=== PATIENT | male | born 1960 | race African-American/Black ===

== ENCOUNTER 2020-08-19 06:05 | Emergency (ER) | payer MEDICARE, MEDICAID, SELFPAY ==
--- NOTE | ~2020-08-19 | XR_ITS ---
EXAMINATION: XR chest 1V portable INDICATION: Cough TECHNIQUE: Portable AP chest at 0802 hours COMPARISON: 09/04/2010 FINDINGS: The lungs are free of acute opacities. There is no pleural effusion or pneumothorax. The ca rdiomediastinal silhouette is normal. There is chronic mild elevation of the right hemidiaphragm. Cliff gical clips are noted near the gastroesophageal junction. IMPRESSION: 1. No acute cardiopulmonary abnormality. Reviewed, dictated and finalized at location [facility] [employer]
[2020-08-19 06:12] VITALS: BP 132/89; PULSE 113; RESP 20; TEMP 35.6; O2SAT 98
--- NOTE | 2020-08-19 06:33 | ECG_ITS ---
Measurements Intervals [place] Rate: 93 P: 47 OK: 180 QRS: -29 QRSD: 109 T: 64 QT: 366 QTc: 455 Interpretive Statements SINUS RHYTHM CANNOT RULE OUT SEPTAL INFARCT, AGE INDETERMINATE BORDERLINE T WAVE ABNORMALITY- HIGH LATERAL LEADS ABNORMAL ECG Electronically Signed On 08-19-2020 8:37:24 [employer] by Bharat Shipman D.O.
--- NOTE | 2020-08-19 06:43 | ED.SOB ---
HPI - SOB/Dyspnea General Chief Complaint: Shortness of Breath/Dyspnea Stated Complaint: cough Time Seen by Provider: 08/19/20 06:16 Source: patient Mode of arrival: ambulatory Limitations: no limitations History of Present Illness HPI Narrative: This patient is a 60 year old male with history of hypertension and bronchitis who presents for evaluation of a cough. He reports he has had a cough for 1 week after he returned from [place]. He states his cough is nonproductive, and he is coughing so much it is making his body ache. He denies associated fever, chills, nausea, vomiting, diarrhea, sob or chest pain. He had similar symptoms 3 months ago. He was evaluated by his PCP at that time and he was started on promethazine. He reports having a negative covid test at that time. Of note is he was in [place] for a . Related Data Allergies Allergy/AdvReac Type Severity Reaction Status Date / Time prochlorperazine Allergy Mild TONGUE Unverified 12/09/19 12:08 SWELLING Review of Systems Review of Systems: All systems reviewed & are unremarkable except as noted in HPI and below Constitutional: Constitutional: Denies chills and Denies fever(s) ENT: Denies sore throat Cardiovascular: Cardiovascular: Denies chest pain Respiratory: Respiratory: Reports chest congestion, Reports cough and Denies dyspnea Gastrointestinal: Gastrointestinal: Denies abdominal pain, Denies diarrhea, Denies nausea and Denies vomiting Musculoskeletal: Musculoskeletal: Reports myalgias PMFSH Past Medical History Medical History (Updated 08/19/20 @ 08:13 by Gracy Marcus MD) Hypertension Surgical History Surgical History (Updated 08/19/20 @ 06:44 by Gracy Marcus MD) H/O shoulder surgery Family History Family History (System 12/09/19 @ 12:08 by Charity Maya) Mother Hypertension Asthma Cerebrovascular accident Family history of diabetes mellitus in first degree relative Patient's mother is Father Hypertension Patient's father is in good health Family history of Alzheimer's disease Family history of diabetes mellitus in first degree relative Sibling Patient's sister is in good health Patient's brother is in good health Social History Social History (Updated 08/19/20 @ 06:45 by Gracy Marcus MD) Smoking end date: 10/06/10 Additional smoking assessment comments: smokes 1 cig per week Alcohol intake: never Gender identity (if verbalized by the patient): Male Exam Const: General: no acute distress and alert Orientation/consciousness: patient oriented x3 HENMT: Head: normocephalic and atraumatic Ears: TM's normal bilaterally Face and sinus: face symmetric Mouth: Yes Normal oral and palatal mucosa present Throat: posterior oropharynx normal Eyes: EOM: EOMs intact bilaterally Resp: Effort & Inspection: normal respiratory effort, not labored and not tachypneic Auscultation: diminished lung sounds Cardio: Rate: regular rate Rhythm: regular rhythm Heart sounds: no murmurs GI: GI Palp: Yes Soft to palpation, No Tenderness to palpation present (GI) and No Guarding due to palpation present (GI) Auscultation: normal bowel sounds Course Reevaluation(s) Reevaluation #1: I Discussed with patient that labs are unremarkable other than hyperglycemia. He is stable for discharge home. Date: 08/19/20 Time: 08:12 Vital Signs Vital signs: Vital Signs Temperature 96.1 F L 08/19/20 06:12 Pulse Rate 113 H 08/19/20 06:12 Respiratory Rate 20 08/19/20 06:12 Blood Pressure 132/89 08/19/20 06:12 Pulse Oximetry 98 08/19/20 06:12 Temperature 96.1 F L 08/19/20 06:12 Pulse Rate 113 H 08/19/20 06:12 Respiratory Rate 20 08/19/20 06:12 Blood Pressure 132/89 08/19/20 06:12 Pulse Oximetry 98 08/19/20 06:12 MDM - SOB/Dyspnea Lab Data Attestation: I reviewed the patient's lab results. Result diagrams: 08/19/20 06
[2020-08-19] MEDS: ALBUTEROL SULFATE (*SP) AEROSOL 1 PUFF 4 PUFF INHALATION (06:50)
[2020-08-19] MEDS: ALBUTEROL SULFATE (*SP) INHALER 1 PUFF (06:51)
[2020-08-19 06:59] LABS: Basophils Absolute Auto 0.1 K/mm3 (0.0-0.1); Basophils Percent Auto 0.7 % (0.2-1.2); Eosinophils Absolute Auto 0.1 K/mm3 (0-0.3); Eosinophils Percent Auto 1.6 % (0-4.4); Hematocrit 41.9 % (42.0-52.0); Hemoglobin 13.3 g/dL (14.0-18.0); Immature Granulocyte Absolute 0.03 K/mm3 (0.00-0.031); Immature Granulocyte Percent A 0.4 % (0-0.5); Lymphocytes Absolute Auto 2.27 K/mm3 (0.9-3.2); Lymphocytes Percent Auto 30.5 % (18.3-44.2); Mean Corpuscular HGB Conc 31.7 g/dl (32-36); Mean Platelet Volume 10.2 fl (7.4-10.4); Monocytes Absolute Auto 0.5 K/mm3 (0.1-0.6); Monocytes Percent Auto 6.5 % (2.6-8.5); Neutrophils Absolute Auto 4.5 K/mm3 (1.3-6.7); Neutrophils Percent Auto 60.3 % (45.5-73.1); Platelet Count Result 337 k/mm3 (150-375); Red Blood Count 4.93 M/mm3 (4.6-6.20); Red Cell Distribution Width 13.3 % (11.5-14.5); White Blood Count 7.4 K/mm3 (4.5-10.0)
[2020-08-19 07:09] LABS: Lactic Acid Reflex 1.2 mmol/L (0.7-2.1)
[2020-08-19 07:13] LABS: Alanine Aminotransferase 23 U/L (4-50); Albumin Level 4.3 g/dL (3.5-5.1); Alkaline Phosphatase 76 U/L (38-126); Anion Gap 9 mmol/L (8-16); Aspartate Amino Transferase 27 U/L (17-59); Bilirubin,Total 0.4 mg/dL (0.2-1.3); Blood Urea Nitrogen 19 mg/dL (9-20); Calcium 9.2 mg/dL (8.4-10.2); Carbon Dioxide 28 mmol/L (22-30); Chloride 103 mmol/L (98-107); Estimated CRCL calculation 100 ml/min; Estimated Glomerular Filt Rate > 60; Glucose 303 mg/dL (75-110); Sodium 140 mmol/L (137-145)
[2020-08-19 08:45] VITALS: BP 154/90; PULSE 75; RESP 16; O2SAT 100
[2020-08-19 21:18] LABS: SARS-CoV-2 RNA PCR Negative
== END 2020-08-19 08:45 | disposition home or self-care (01) ==
PROVIDERS: Emergency Provider General Practice
DX: J06.9 Acute upper respiratory infection, unspecified (principal); Z20.828 Contact with and (suspected) exposure to other viral communicable diseases; I10 Essential (primary) hypertension; F17.210 Nicotine dependence, cigarettes, uncomplicated; R94.31 Abnormal electrocardiogram [ECG] [EKG]
CPT/HCPCS: 36415; 71045; 80048; 80076; 83605; 85025; 86140; 87635; 93005; 99283; A9270; C9803; U0003